=== PATIENT | female | born 1985 | race Caucasian/White ===

== ENCOUNTER 2020-02-24 14:39 | Emergency (ER) | payer BC ==
[2020-02-24] MEDS ORDERED: Fentanyl 100 MCG/2 ML VIAL ONE (14:43)
--- NOTE | 2020-02-24 15:16 | CT ---
Exam: Head CT without contrast HISTORY: Patient was thrown off a horse. Level 2 trauma. COMPARISON: none FINDINGS: Hemorrhage: No intraparenchymal hemorrhage or extra-axial hematoma. Brain parenchyma: Cortical escobar-white matter differentiation is preserved. No mass effect or midline shift. Basilar cisterns are patent. Ventricular system: Ventricles and sulci are patent and symmetric. Calvarium: Intact. Sinuses and mastoid air cells: Adequate aeration. Soft tissues: Questionable left facial/periorbital posttraumatic change. Correlate with physical exam . IMPRESSION: No intracranial post traumatic sequelae.
--- NOTE | 2020-02-24 15:25 | CT ---
Exam: Abdomen CT with contrast Pelvic CT with contrast CT of the lumbar spine HISTORY: Level 2 trauma. Patient was thrown from a horse. FINDINGS: Abdomen CT: Dependent atelectatic changes Normal heart size. No significant pericardial fluid Visualized aorta has a normal caliber. No CT evidence of cholecystitis Patent portal vein Liver, spleen, pancreas and adrenal glands do not demonstrate any post traumatic change Symmetric enhancement of the kidneys. Bilaterally no obstructive uropathy No gastrohepatic, retrocrural or periportal lymphadenopathy No mesenteric mass, lymphadenopathy, free air or free fluid. Limited evaluation of the alimentary canal by the lack of contrast. No evidence of a bowel obstructio n. Normal ileocecal junction. Appendix is difficult to appreciate. No evidence of a inflammatory change at the cecal apex. Scattered fecal material in a nondistended, nondilated colon Pelvic CT: Uterus and adnexal structures do not demonstrate any posttraumatic change. There are bilat eral follicles in the ovaries. Urinary bladder is intact. Minimal fluid in the pelvis. Presacral fat is preserved. Osseous structures: The visualized lower left and right ribs do not demonstrate any posttraumatic adithya nge. Visualized sacrum and bony pelvis appear to be intact. Lumbar spine CT: Lumbar spine vertebral body heights are maintained. No fracture. No spondylolisthesi s or spondylolysis. Straightening of lumbar lordosis is presumed to be positional. There is a small amount of stranding involving the medial right gluteal region (axial image 59). Posttraumatic subcuta neous hematoma is favored. Pression: No post traumatic change in the abdomen or pelvis. Results of the head and the abdomen/pelvis CT discussed with Dr. Workman 02/24/2020 3:23 code CR Transcribed Date/Time: 02/24/2020 3:36 PM
[2020-02-24 15:26] LABS: #Lymphocytes 1.6 thou/uL (1.20-3.40); #Monocytes 0.7 thou/uL (0.11-0.59); #Neutrophils 12.1 thou/uL (1.40-6.50); %Basophils 0.2 % (0.0-1.0); %Eosinophils 0.3 % (0.0-10.0); %Lymphocytes 11.2 % (21.0-51.0); %Monocytes 4.7 % (0.0-10.0); %Neutrophils 83.6 % (42.0-75.0); Hemoglobin 14.8 g/dL (12.0-16.0); Mean Corpuscular HGB CONC 34.6 g/dL (32.0-36.0); Mean Corpuscular Volume 89.6 fL (78.0-98.0); Mean Platelet Volume 6.7 fL (7.4-10.4); Platelet Count 275 thou/uL (130-400); RBC Distribution Width 11.9 % (11.5-14.5); Red Blood Cell (RBC) Count 4.79 mill/uL (4.20-5.40); White Blood Cell (WBC) Count 14.4 thou/uL (4.8-10.8)
[2020-02-24 15:31] LABS: BHCG - Serum Negative (NEGATIVE); Pregs Control Background? CLEAR/WHITE (CLR/WHITE); Pregs Control Bar Appear? YES (CONTROL BAR)
[2020-02-24] MEDS ORDERED: Iopamidol-370 76% 500 ML 1 ML ONE (15:44)
[2020-02-24 15:46] LABS: ALT (SGPT) 14 U/L (8-55); AST (SGOT) 21 U/L (5-34); Albumin 4.5 g/dL (3.5-5.0); Alkaline Phosphatase 61 U/L (40-110); Anion Gap 12 mmol/L (10-20); BUN (Urea Nitrogen) 15 mg/dL (7.0-18.7); Bilirubin, Total 1.4 mg/dL (0.2-1.2); Calc. Creatinine Clearance 0 mL/min (70-130); Calcium 9.5 mg/dL (7.8-10.44); Carbon Dioxide 27 mmol/L (22-29); Chloride 107 mmol/L (98-107); Globulin 2.8 g/dL (2.4-3.5); Glucose 88 mg/dL (70-105); Lipase 42 U/L (8-78); Potassium 3.9 mmol/L (3.5-5.1); Protein, Total 7.3 g/dL (6.0-8.3); Sodium 142 mmol/L (136-145)
[2020-02-24] MEDS ORDERED: Ketorolac Tromethamine 30 MG/ML VIAL ONE (16:34)
== END 2020-02-24 16:45 | disposition home or self-care (01) ==
LOC: ERS 14:39
DX: S76.011A Strain of muscle, fascia and tendon of right hip, initial encounter (principal); V80.010A Animal-rider injured by fall from or being thrown from horse in noncollision accident, initial encounter
CPT/HCPCS: 36415; 70450; 74177; 80053; 83605; 83690; 84703; 85025; 86850; 86900; 86901; 96374; 96375; J1885; J3010; Q9967